=== PATIENT | female | born 1950 | race Caucasian/White ===

== ENCOUNTER 2018-02-05 17:58 | Inpatient (IN) | payer MEDICARE, OTHER ==
[~2018-02-05] VITALS: Ht 160 cm; Wt 56.6 kg
[2018-02-05 18:54] LABS: BASOPHILS # (AUTO) 0.07 x10^3/uL (0-0.1); BASOPHILS % (AUTO) 1 % (0-1); EOSINOPHILS % (AUTO) 1 % (1-7); LYMPHOCYTES # (AUTO) 1.51 x10^3/uL (1-3.4); LYMPHOCYTES % (AUTO) 16 % (22-44); MD NO; MEAN CORPUSCULAR HEMOGLOBIN 32.8 pg (27.0-34.8); MEAN CORPUSCULAR VOLUME 99.3 fL (80-100); MEAN PLATELET VOLUME 6.9 fL (7.4-10.4); MONOCYTES # (AUTO) 0.78 x10^3/uL (0.2-0.8); MONOCYTES % (AUTO) 8 % (2-9); NEUTROPHILS # (AUTO) 7.17 x10^3/uL (1.8-6.8); NEUTROPHILS % (AUTO) 74 % (42-75); PLATELET COUNT 381 x10^3/uL (130-400); RED BLOOD COUNT 4.35 x10^6/uL (3.82-5.3); RED CELL DISTRIBUTION WIDTH 15.7 % (9.6-15.2)
[2018-02-05 19:07] LABS: ALBUMIN 4.1 g/dL (3.4-5.0); ANION GAP 7 mmol/L (5-15); CALCIUM 8.7 mg/dL (8.5-10.1); CHLORIDE 106 mmol/L (98-107)
[2018-02-05 19:12] LABS: CREATININE 0.63 mg/dL (0.55-1.02); TROPONIN I < 0.015 ng/mL (0.000-0.045)
[2018-02-05] MEDS ORDERED: ALBUTEROL/IPRATROPIUM 2.5MG/0.5MG, 3 ML ONE (19:14)
[2018-02-05] MEDS: ALBUTEROL/IPRATROPIUM 2.5MG/0.5MG, 3 ML NPPB PRN ×2 (19:15→23:07)
[2018-02-05] MEDS ORDERED: ALBUTEROL SULFATE 2.5 MG/3 ML ONE (19:21)
[2018-02-05] MEDS ORDERED: METH2.5T PO (19:23)
[2018-02-05] MEDS ORDERED: OXYC-302 PO (19:25)
[2018-02-05] MEDS ORDERED: LEVO25TA4 PO (19:25)
[2018-02-05] MEDS ORDERED: VENL150C PO (19:26)
[2018-02-05] MEDS ORDERED: ALPR-475 PO (19:26)
[2018-02-05] MEDS ORDERED: ELLIPTA (19:28)
[2018-02-05] MEDS ORDERED: FLUT1DIS3 INH (19:28)
[2018-02-05] MEDS ORDERED: FLUT1BLS INH (19:28)
[2018-02-05] MEDS ORDERED: ALBU18HF INH (19:29)
[2018-02-05] MEDS ORDERED: ALBUTEROL SULFATE 2.5 MG/3 ML NPPB ONE (19:30)
[2018-02-05] MEDS ORDERED: ALBUTEROL/IPRATROPIUM 2.5MG/0.5MG, 3 ML NPPB PRN (23:30)
[2018-02-06] MEDS ORDERED: OXYC-307 PO (00:28)
[2018-02-06] MEDS: OXYcodone/APAP 10/325MG TABLET PO PRN ×5 (00:54→22:12)
[2018-02-06 00:58] VITALS: BP 147/84
[2018-02-06 01:44] VITALS: BP 138/79
[2018-02-06] MEDS ORDERED: BISACODYL 10 MG SUPP PR PRN (03:00)
[2018-02-06] MEDS ORDERED: OXYcodone IR 5MG TABLET PO PRN (03:00)
[2018-02-06] MEDS ORDERED: ONDANSETRON 2MG/ML, 2ML IVPush PRN (03:00)
[2018-02-06] MEDS ORDERED: hydrALAzine 20 MG/ML, 1ML IVPush PRN (03:00)
[2018-02-06] MEDS ORDERED: morphine SULFATE 10 MG/ML, 1ML IVPush PRN (03:00)
[2018-02-06] MEDS ORDERED: ONDANSETRON ODT 4 MG PO PRN (03:00)
[2018-02-06] MEDS ORDERED: DOCUSATE 100 MG CAPSULE PO PRN (03:00)
[2018-02-06] MEDS ORDERED: ACETAMINOPHEN 325 MG TABLET PO PRN (03:00)
[2018-02-06] MEDS ORDERED: PROMETHAZINE 25 MG/ML, 1ML IM PRN (03:00)
[2018-02-06] MEDS: VENLAFAXINE MC SCH ×2 (03:30→10:48)
[2018-02-06] MEDS: methylPREDNISolone SOD SUCC 125 MG/2 ML IVPush SCH ×4 (04:08→22:13)
[2018-02-06] MEDS: HEPARIN 5,000 UNITS/ML, 1ML SQ SCH ×3 (04:09→22:13)
[2018-02-06] MEDS: NICOTINE 7 MG/24 HR PATCH.TD24 TD SCH (04:24)
[2018-02-06 04:52] LABS: BASOPHILS # (AUTO) 0.02 x10^3/uL (0-0.1); BASOPHILS % (AUTO) 0 % (0-1); EOSINOPHILS % (AUTO) 0 % (1-7); LYMPHOCYTES # (AUTO) 0.83 x10^3/uL (1-3.4); LYMPHOCYTES % (AUTO) 14 % (22-44); MD NO; MEAN CORPUSCULAR HEMOGLOBIN 32.7 pg (27.0-34.8); MEAN CORPUSCULAR VOLUME 99.3 fL (80-100); MEAN PLATELET VOLUME 7.1 fL (7.4-10.4); MONOCYTES # (AUTO) 0.26 x10^3/uL (0.2-0.8); MONOCYTES % (AUTO) 4 % (2-9); NEUTROPHILS # (AUTO) 4.88 x10^3/uL (1.8-6.8); NEUTROPHILS % (AUTO) 82 % (42-75); PLATELET COUNT 372 x10^3/uL (130-400); RED BLOOD COUNT 4.16 x10^6/uL (3.82-5.3); RED CELL DISTRIBUTION WIDTH 15.6 % (9.6-15.2)
[2018-02-06 04:59] LABS: ALANINE AMINOTRANSFERASE 28 U/L (12-78); ALBUMIN 3.6 g/dL (3.4-5.0); ANION GAP 7 mmol/L (5-15); CALCIUM 8.9 mg/dL (8.5-10.1); CHLORIDE 105 mmol/L (98-107); CHOLESTEROL, TOTAL 174 mg/dL (140-239); CREATININE 0.72 mg/dL (0.55-1.02); TRIGLYCERIDES 58 mg/dL (50-200); VLDL CHOLESTEROL 12 mg/dL (0-25)
[2018-02-06 05:02] LABS: ALKALINE PHOSPHATASE 82 U/L (45-117); BILIRUBIN,TOTAL 0.5 mg/dL (0.2-1.0); CHOL/HDL RATIO 1.9; HDL CHOL % 52 % (28-40); HDL CHOLESTEROL (DIRECT) 90 mg/dL (40-60); LDL CHOLESTEROL,CALCULATED 72 mg/dL (54-169); LDL/HDL RATIO 0.8 (0.5-3.0); TOTAL PROTEIN 6.3 g/dL (6.4-8.2)
[2018-02-06 05:15] LABS: FREE T4 (FREE THYROXINE) 1.62 ng/dL (0.76-1.46); THYROID STIMULATING HORMONE 0.17 mIU/L (0.358-3.740)
[2018-02-06 05:25] LABS: HEMOGLOBIN A1C 6.4 % (4.2-6.3)
[2018-02-06] MEDS: ALBUTEROL/IPRATROPIUM 2.5MG/0.5MG, 3 ML NPPB SCH ×5 (06:00→22:52)
[2018-02-06 07:07] VITALS: BP 125/78
[2018-02-06] MEDS: VENLAFAXINE XR 37.5MG CAP.ER.24H PO SCH ×2 (08:35→22:13)
[2018-02-06] MEDS: DOXYCYCLINE 100MG TABLET PO SCH ×2 (08:35→22:12)
[2018-02-06] MEDS: FLUTICASONE/VILANTEROL 100-25MCG/INH INH SCH (08:35)
[2018-02-06] MEDS ORDERED: LEVOTHYROXINE 25 MCG TABLET PO SCH (09:00)
[2018-02-06 13:19] VITALS: BP 102/65
[2018-02-06 13:48] LABS: MICROSCOPIC NOT IND
[2018-02-06 13:59] LABS: CULTURE INDICATED? NO
[2018-02-06] MEDS: GUAIFENESIN 200 MG TABLET PO SCH ×2 (17:29→22:12)
[2018-02-06 19:23] VITALS: BP 116/78
[2018-02-06] MEDS: POLYETHYLENE GLYCOL 17 GM PACKET PO PRN (22:32)
[2018-02-07 01:25] VITALS: BP 110/72
[2018-02-07] MEDS: OXYcodone/APAP 10/325MG TABLET PO PRN ×4 (02:10→22:34)
[2018-02-07] MEDS: GUAIFENESIN 200 MG TABLET PO SCH ×4 (04:19→20:09)
[2018-02-07] MEDS: HEPARIN 5,000 UNITS/ML, 1ML SQ SCH ×3 (04:19→20:10)
[2018-02-07] MEDS: LEVOTHYROXINE 50 MCG TABLET PO SCH (04:19)
[2018-02-07] MEDS: methylPREDNISolone SOD SUCC 125 MG/2 ML IVPush SCH ×4 (04:19→22:29)
[2018-02-07] MEDS: NICOTINE 7 MG/24 HR PATCH.TD24 TD SCH (04:27)
[2018-02-07] MEDS: ALBUTEROL/IPRATROPIUM 2.5MG/0.5MG, 3 ML NPPB SCH ×5 (06:00→22:00)
[2018-02-07 07:23] VITALS: BP 110/66
[2018-02-07] MEDS ORDERED: LEVOTHYROXINE 88 MCG TABLET PO SCH (09:00)
[2018-02-07] MEDS: VENLAFAXINE XR 37.5MG CAP.ER.24H PO SCH ×2 (09:37→20:10)
[2018-02-07] MEDS: DOXYCYCLINE 100MG TABLET PO SCH ×2 (09:37→20:09)
[2018-02-07] MEDS: FLUTICASONE/VILANTEROL 100-25MCG/INH INH SCH (11:25)
[2018-02-07 12:53] VITALS: BP 112/71
[2018-02-07 19:12] VITALS: BP 125/78
[2018-02-08 01:10] VITALS: BP 124/1
[2018-02-08] MEDS: OXYcodone/APAP 10/325MG TABLET PO PRN ×4 (03:48→20:58)
[2018-02-08] MEDS: HEPARIN 5,000 UNITS/ML, 1ML SQ SCH ×3 (03:48→20:31)
[2018-02-08] MEDS: methylPREDNISolone SOD SUCC 125 MG/2 ML IVPush SCH ×4 (03:48→22:06)
[2018-02-08] MEDS: NICOTINE 7 MG/24 HR PATCH.TD24 TD SCH (03:48)
[2018-02-08] MEDS: ALBUTEROL/IPRATROPIUM 2.5MG/0.5MG, 3 ML NPPB SCH ×5 (06:00→22:52)
[2018-02-08] MEDS: LEVOTHYROXINE 50 MCG TABLET PO SCH (06:26)
[2018-02-08] MEDS: GUAIFENESIN 200 MG TABLET PO SCH ×4 (06:26→20:32)
[2018-02-08 07:41] VITALS: BP 138/76
[2018-02-08] MEDS: DOXYCYCLINE 100MG TABLET PO SCH ×2 (09:09→20:32)
[2018-02-08] MEDS: VENLAFAXINE XR 37.5MG CAP.ER.24H PO SCH ×2 (09:09→20:32)
[2018-02-08] MEDS: FLUTICASONE/VILANTEROL 100-25MCG/INH INH SCH (09:09)
[2018-02-08] MEDS: POLYETHYLENE GLYCOL 17 GM PACKET PO PRN (09:10)
[2018-02-08 12:37] VITALS: BP 123/73
[2018-02-08 19:19] VITALS: BP 143/83
[2018-02-08] MEDS ORDERED: ZOLPIDEM 5MG TABLET PO PRN (21:30)
[2018-02-09 02:52] VITALS: BP 129/75
[2018-02-09] MEDS: OXYcodone/APAP 10/325MG TABLET PO PRN ×3 (03:46→12:52)
[2018-02-09] MEDS: methylPREDNISolone SOD SUCC 125 MG/2 ML IVPush SCH ×3 (03:47→17:14)
[2018-02-09] MEDS: NICOTINE 7 MG/24 HR PATCH.TD24 TD SCH (03:47)
[2018-02-09] MEDS: HEPARIN 5,000 UNITS/ML, 1ML SQ SCH ×2 (03:53→12:52)
[2018-02-09] MEDS: GUAIFENESIN 200 MG TABLET PO SCH ×3 (05:32→17:14)
[2018-02-09] MEDS: LEVOTHYROXINE 50 MCG TABLET PO SCH (05:32)
[2018-02-09] MEDS: ALBUTEROL/IPRATROPIUM 2.5MG/0.5MG, 3 ML NPPB SCH ×3 (07:29→15:15)
[2018-02-09] MEDS: DOXYCYCLINE 100MG TABLET PO SCH (08:13)
[2018-02-09] MEDS: VENLAFAXINE XR 37.5MG CAP.ER.24H PO SCH (08:13)
[2018-02-09] MEDS: FLUTICASONE/VILANTEROL 100-25MCG/INH INH SCH (08:14)
[2018-02-09] MEDS: POLYETHYLENE GLYCOL 17 GM PACKET PO PRN (08:20)
[2018-02-09 08:51] VITALS: BP 136/72
[2018-02-09 12:59] VITALS: BP 111/71
[2018-02-09] MEDS ORDERED: LEVO50TA PO (13:18)
== END 2018-02-09 17:26 | disposition home or self-care (01) | DRG 189 ==
LOC: ED 20:52 → EDIP 21:34 → 3NW 22:05
PROVIDERS: ADMIT Internal Medicine; ATTEND Internal Medicine
PROC: 0T9B70Z Drainage of Bladder with Drainage Device, Via Natural or Artificial Opening (ICD-10-PCS; principal; 2018-02-06)
DX: J96.01 Acute respiratory failure with hypoxia (principal); J44.1 Chronic obstructive pulmonary disease with (acute) exacerbation; E03.9 Hypothyroidism, unspecified; F41.9 Anxiety disorder, unspecified; F17.210 Nicotine dependence, cigarettes, uncomplicated; I34.1 Nonrheumatic mitral (valve) prolapse; Z83.3 Family history of diabetes mellitus; Z88.0 Allergy status to penicillin; Z79.899 Other long term (current) drug therapy
CPT/HCPCS: 36415; 71045; 80048; 80053; 80061; 81003; 82040; 83036; 83735; 83880; 84439; 84443; 84484; 85025; 93005; 93306; 94640; 99285; J1644; J7613; J7620; J2930; J7512